=== PATIENT | male | born 1940 | race Caucasian/White ===

== ENCOUNTER 2016-09-15 08:26 | Emergency (ER) | payer MEDICARE ==
[~2016-09-15] VITALS: Ht 177.8 cm; Wt 113.6 kg
[~2016-09-15 08:26] MED LIST: BUME2TAB3 PO; CLPD75T PO; CRV6.25T PO; GLIM1TAB PO; INSHUMR1 SC; INSU100V11 SQ; ISOS30TA41 PO; KCL20TCR PO; LEVO150T9 PO; METO5TAB6 PO; MULT-954 PO; OMEG1CAP61 PO; SPRN25T PO; TAMS0.4C2 PO; TEMA30CA PO; WARF4TAB3 PO
--- OUTSIDE RECORDS SUMMARY | 2016-09-15 08:30 | XMS REPORT | Summary of Care ---
Author Author Michael Cervantes M.D. Organization Unknown Address Unknown Phone Unavailable Care Team Providers Care [employer] Name Role Phone Michael Cervantes M.D. Unavailable Unavailable Michael Cervantes Unavailable Unavailable Unavailable Unavailable Functional Status Name Dates Details Functional status health issues are not documented Status: Name Dates Details Cognitive status health issues are not documented Status: Problems Name Dates Details Prostatic hypertrophy, benign (600.00, N40.0) Status: Active Bradycardia (427.89, R00.1) Status: Active Anticoagulant long-term use (V58.61, Z79.01) Status: Active Non smoker (V49.89, Z78.9) Status: Active Hypothyroidism (244.9, E03.9) Status: Active Coronary artery disease (414.00, I25.10) Status: Active Low back pain (724.2, M54.5) Status: Active Congestive heart failure (428.0, I50.9) Status: Active Chronic kidney disease (585.9, N18.9) Status: Active Dysphagia (787.20, R13.10) Status: Active Diabetic neuropathy (250.60, E11.40) Status: Active 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 Quantity: 30 Refills: 5 Granville M.D., Michael Start 11-Sep-2015 Active MetOLazone 10 MG Oral Tablet Take 1 tablet twice daily Refills: 0 Helen M.D., Michael Start 11-Sep-2015 Active Potassium Chloride ER 20 MEQ Oral Tablet Extended Release Take 1 tablet twice daily Refills: 0 Granville M.D., Michael Start 11-Sep-2015 Active Amiodarone HCl - 200 MG Oral Tablet TAKE 1 TABLET DAILY. Refills: 0 Granville M.D., Michael Start 11-Sep-2015 Active Atorvastatin Calcium 40 MG Oral Tablet TAKE 1 TABLET AT BEDTIME. Quantity: 30 Refills: 6 Helen M.D., Michael Start 11-Sep-2015 Active Bumetanide 2 MG Oral Tablet TAKE 1 TABLET DAILY. Refills: 0 Granville M.D., Michael Start 11-Sep-2015 Active Levothyroxine Sodium 150 MCG Oral Tablet TAKE 1 TABLET DAILY. Refills: 0 Helen M.D., Michael Start 11-Sep-2015 Active Spironolactone 25 MG Oral Tablet TAKE 1 TABLET DAILY. Refills: 0 Helen M.D., Michael Start 11-Sep-2015 Active Flomax 0.4 MG Oral Capsule take 1 capsule daily Quantity: 30 Refills: 6 Granville M.D., Michael Start 11-Sep-2015 Active Plavix 75 MG Oral Tablet TAKE 1 TABLET DAILY. Refills: 0 Granville M.D., Michael Start 11-Sep-2015 Active Isosorbide Mononitrate ER 60 MG Oral Tablet Extended Release 24 Hour TAKE 1 TABLET ONCE DAILY. Refills: 0 Granville M.D., Michael Start 11-Sep-2015 Active Lisinopril 5 MG Oral Tablet TAKE 1 TABLET DAILY. Refills: 0 Granville M.D., Michael Start 11-Sep-2015 Active NovoLIN N 100 UNIT/ML Subcutaneous Suspension 25 units subq BID Refills: 0 Granville M.D., Michael Start 11-Sep-2015 Active Magnesium Oxide 400 MG Oral Tablet TAKE 1 TABLET TWICE DAILY. Refills: 0 Granville M.D., Michael Start 11-Sep-2015 Active Multi Vitamin Daily Oral Tablet TAKE 1 TABLET DAILY. Refills: 0 Helen M.D., Michael Start 11-Sep-2015 Active Fish Oil 1000 MG Oral Capsule TAKE 3 CAPSULE Daily Refills: 0 Granville M.D., Micheal Start 11-Sep-2015 Active Tylenol with Codeine #3 300-30 MG Oral Tablet TAKE 1 TABLET Twice daily PRN Quantity: 30 Refills: 0 Granville M.D., Michael Start 11-Sep-2015 Active Warfarin Sodium 3 MG Oral Tablet take 1 tab 4 times a week and on other days takes 4mg a day Quantity: 55 Refills: 3 Michael Cervantes M.D. Start 15-Sep-2015 Active Warfarin Sodium 4 MG Oral Tablet Take 1 tab 3 times a week Quantity: 40 Refills: 3 Helen Stinson, Michael Start 15-Sep-2015 Active Test Strips Check blood sugar up to 5 times daily Quantity: 150 Refills: 11 Helen Stinson, Michael Start 23-Sep-2015 Active Allergies and Adverse Reactions Name Dates Details No Known Drug Allergies (Allergy) Status: Active Past Medical History Name Dates Details AF (atrial fibrillation) (427.31, I48.91) Status: Active Cerebral infarction (434.91, I63.9) Status: Active Chronic kidney disease (585.9, N18.9) Status: Active Congestive heart failure (428.0, I50.9) Status: Active Coronary artery disease (414.00, I25.10) Status: Active Dyslipidemia (272.4, E78.5) Status: Active Hypertension (401.9, I10) Status: Active Hypothyroidism (244.9, E03.9) Status: Active Low back pain (724.2, M54.5) Status: Active Procedures Procedure Dates Details History of Carotid Artery Catheterization History of Complete Colonoscopy History of CABG History of Pacemaker Placement History of Complete Colonoscopy For Polyp Removal Procedures not documented Immunization Name Dates Details Fluzone Quadrivalent Intramuscular Suspension on: 12-Mar-2015 Family History Name Dates Details No pertinent family history Status: Active Name Dates Details Family history of Coronary artery disease (414.00, I25.10) Status: Active Family history of Diabetes type 2, controlled (250.00, E11.9) Status: Active Social History Name Dates Details Unknown if ever smoked Vital Signs Date Test Result Details No Known Vitals to report Results Date Description Value Details Results not documented Plan of Care Name Dates Details Planned Observations BASIC METABOLIC PROFILE 1210 On 12-Mar-2016 Intent LIPID PROFILE 1184 On 12-Mar-2016 Intent HEMOGLOBIN A1C 3507 On 12-Mar-2016 Intent Quant Microalbumin 1106 On 12-Mar-2016 Intent Planned Goals not documented Planned Encounters Appointment; Provider: Michael Cervantes M.D. On 15-Mar-2016 09:30 Instructions Name Dates Details Instructions not documented Encounters Appointment; Michael Cervantes M.D. Encounter Diagnosis: Problem not documented On 15-Sep-2015 09:30
[2016-09-15] MEDS ORDERED: LIDOCAINE 2% (XYLOCAINE) 20 ML VIAL INJ ONE (09:00)
[2016-09-15] MEDS ORDERED: TETANUS, DIPTHERIA, PERTUSSIS (ADACELL) VACCINE 0.5 ML VIAL IM ONE (09:05)
[2016-09-15 09:21] LABS: BASOPHILS % (AUTO) 1 % (0-2); EOSINOPHILS # (AUTO) 0.3 10^3uL; EOSINOPHILS % (AUTO) 5 % (0-4); LYMPHOCYTES # (AUTO) 1.9 X10^3; MEAN CORPUSCULAR HEMOGLOBIN 29.8 PG (26.0-34.0); MEAN CORPUSCULAR VOLUME 88 FL (80-100); MEAN PLATELET VOLUME 10.7 FL (6.0-9.5); MONOCYTES # (AUTO) 0.6 X10^3; MONOCYTES % (AUTO) 10 % (3-11); NEUTROPHILS # (AUTO) 3.7 X10^3; NEUTROPHILS % (AUTO) 55 % (51-67); PLATELET COUNT 123 10^3uL (150-450); WHITE BLOOD COUNT 6.67 10^3uL (4.0-11.0)
[2016-09-15 09:30] LABS: ALBUMIN 3.6 g/dL (3.4-5.0); CALCULATED IONIZED CALCIUM 4.2 mg/dL (3.8-4.6); TOTAL PROTEIN 6.3 g/dL (6.4-8.5)
[2016-09-15] MEDS ORDERED: BACITRACIN OINTMENT 0.9 GM PACKET TOP ONE ×2 (09:42→09:50)
--- NOTE | 2016-09-15 10:27 | Diagnostic Imaging Report ---
INDICATION: Foot pain after fall. Laceration to the bottom of the fourth and fifth digits. TECHNIQUE: AP, oblique, and lateral views of the left foot were obtained nonweightbearing. FINDINGS: Soft tissue swelling of the dorsal aspect of the midfoot and forefoot. No radiopaque foreign bodies. No acute fracture or traumatic malalignment. Vascular calcifications are present. IMPRESSION: 1. No radiopaque foreign body. 2. No acute fracture. Dictated by: Dictated on workstation # [id number]
[2016-09-15] MEDS ORDERED: CEPH500T PO (10:45)
[2016-09-15 11:31] VITALS: BP 124/73
== END 2016-09-15 10:59 | disposition home or self-care (01) ==
LOC: ED 08:28
DX: S91.115A Laceration without foreign body of left lesser toe(s) without damage to nail, initial encounter (principal); Z79.01 Long term (current) use of anticoagulants; Z79.02 Long term (current) use of antithrombotics/antiplatelets; M17.0 Bilateral primary osteoarthritis of knee; W18.39XA Other fall on same level, initial encounter; Z91.81 History of falling
CPT/HCPCS: 12001; 36415; 73630; 80053; 85025; 85610; 90471; 90715; 99283; A9270; J2001; 99284

== ENCOUNTER 2016-09-21 15:32 | Outpatient (RCR) | payer MEDICARE ==
[~2016-09-21 15:32] MED LIST changes: +CEPH500T PO
--- NOTE | 2016-09-25 13:32 | PT/OT/ST INITIAL EVALUATION ---
Department of Health and Human Services Form Approved [facility] Care Financing Administration OMB No. [id number] PLAN OF CARE/ASSESSMENT FOR OUTPATIENT REHABILITATION (Complete for Initial Claims Only) 1. PATIENT'S NAME Christopher Colindres 2. ACC # [id number] [facility]. [facility] [id number] 4. PROVIDER NO. [id number] 5. TYPE: SPT 6. PRIOR HOSPITALIZATION 7. PRIMARY DX Dysphasia 8. SECONDARY DX 9. ONSET DATE Approximately 1 year ago 10. REFERRAL DATE 09/16/2016 11. SOC. DATE 09/21/2016 12. TIME OF EVAL 12. REFERRING PHYSICIAN Dr. Michael Cervantes 13. CHARGES/UNITS 14. G CODES G8996 - PJ 20-39% impaired and goal is G8779 - CI 1-19% impaired 15. PRIOR LEVEL OF FUNCTION; PERTINENT HISTORY (Prior therapy results, reason for referral.) S: Reason for referral: Prior to therapy the patient consented to today's evaluation and treatment. The patient is a 76-year-old male referred to speech therapy by Dr. Michael Cervantes to address dysphasia. Occupational and social health history: He lives at home by himself. Description/mechanism of injury: There is no mechanism of injury. Primary Complaint: He coughs and chokes on everything. This does not happen all the time but occasionally he coughs and chokes and it can happen on just about anything. Prior level of function: Prior to this he first noticed problems after he experiences TIAs however this was 4-5 years ago. He states the recent onset was about 1 year ago and it has just progressively gotten worse. Current level of function: Currently he is demonstrating difficulty with cough and choking on liquids and solids. He states he did receive therapy while he was an inpatient but could not remember for how long. Aggravating factors: Bread and potatoes. Diagnostic testing: He has received no diagnostic testing. Past medical history: Includes pacemaker, defibrillator, he is diabetic, he has had TIAs, heart stents, tachycardic. Past surgical history: Includes open heart surgery, bypass surgery, and stent placement. Current medications: Medications were reviewed with the patient and no medications should effect therapy. Personal health rating: The patient rates overall and general health as good. Patient's Goal: The patient wishes to have decreased coughing and choking. 16. INITIAL ASSESSMENT/SAFETY PRECAUTIONS/MEDICAL COMPLICATIONS (Level of function at start of care. Be specific, use objective measures, list problems.) O: APPEARANCE, OBSERVATION AND GAIT: Upon assessment the patient was given an oral neck exam. He was missing several teeth. He only had 1 tooth in the very front and was missing several on the left side on the top and several on the right side on the bottom. Before anything was eaten, the patient already had residue on his tongue and in his gums. This was cleared with a tongue sweep. He demonstrated no labial or lingual weakness and the patient had no gag reflex. He had proper V laryngeal elevation and proper sensation. The daughter accompanied him to the visit and she states that he usually only eats things such beans, bread, chicken sandwiches, and tomato juice. The patient was able to sustain awe for 10 seconds. He had a hoarse voice during the evaluation however he states this has been going on for quite a while and maybe even after his first stroke was when he noticed it about 4-5 years ago. After the oral neck exam, the patient ate crackers and drank water. He demonstrated no difficulty with mastication. He did have minimal residue on the tongue and in between his gums. This was cleared with a tongue sweep. He swallowed the crackers with no outward signs or symptoms of aspiration. He then drank thin liquids with no outward signs or symptoms of aspiration however the patient reports that this does happen at home. Therefore an exercise program for pharyngeal exercises was implemented and that was today's treatment. These exercises were gone over with the patient and he agreed to work on these at home as a home exercise program and in therapy. Due to the personal health rating of good, the patient has a good prognosis for therapy. 17. INITIAL POC: (Specify procedures, modalities, short and director long term care goals) A: CONTRAINDICATIONS, PRECAUTIONS AND OBSTACLES TO DELIVERY OF CARE: None. INFORMED CONSENT: The diagnosis, prognosis, treatment plan, risks and expected outcomes were discussed with the patient and he agreed to today's established plan of care. P: Plan to treat this patient 1 time a week for 6 weeks in order to address dysphasia. Therapy to include diet tolerance and dysphasia exercises. 18. FREQUENCY 19. DURATION 20. FUNCTIONAL LEVEL (End of claim period) 21. PHYSICIAN SIGNATURE ? ON FILE OR ENTER HERE: 22. DATE: I certify the need for these services furnished under this plan of care and if for partial hospitalization. 23. CERTIFICATION FROM THROUGH FORM [facility]-[id number]
== END 2016-09-27 11:37 | disposition home or self-care (01) ==
LOC: ST 15:32
PROVIDERS: ATTEND Family Medicine
DX: R13.10 Dysphagia, unspecified (principal)
CPT/HCPCS: 92526; 92610; G8996; G8997